=== PATIENT | male | born 1950 | race Hispanic/Latino ===

== ENCOUNTER 2017-11-07 13:31 | Emergency (ER) | payer OTHER, MEDICARE ==
[2017-11-07] MEDS ORDERED: Iohexol 240 (50 ml) PO ONE (15:04)
[2017-11-07] MEDS ORDERED: Sodium Chloride 0.9% 1,000 ML IV ONE (15:10)
--- NOTE | 2017-11-07 15:10 | ED PDOC ---
HPI: Abdomen Time Seen by Provider: 11/07/17 14:18 Chief Complaint (Nursing): GI Problem History Per: Patient History/Exam Limitations: no limitations Onset/Duration Of Symptoms: Days (2), Gradual Current Symptoms Are (Timing): Still Present Severity: Mild Associated Symptoms: Diarrhea. denies: Fever, Chills, Nausea, Vomiting, Back Pain, Chest Pain, Constipation, Urinary Symptoms Exacerbating Factors: None Alleviating Factors: None Last Bowel Movement: Today Additional History Per: Patient Additional Complaint(s): approx 2 days of watery+blood bright red stool, denies n/v, abd pain. Past Medical History Vital Signs: Last Vital Signs Temp 97.6 F 11/07/17 14:02 Pulse 114 H 11/07/17 14:02 Resp 20 11/07/17 14:02 BP 185/103 H 11/07/17 14:02 Pulse Ox - Medical History PMH: Back Problems, Depression - Surgical History Surgical History: Back Surgery - Family History Family History: States: Unknown Family Hx - Home Medications Home Medications: Ambulatory Orders Medication Instructions Recorded Escitalopram [Lexapro] 20 mg PO DAILY 07/10/16 Meloxicam 7.5 mg PO DAILY #12 tablet 07/10/16 Methylprednisolone [Medrol Dose 4 mg PO DAILY #1 packet 07/10/16 Pack (21 tabs)] Pregabalin [Lyrica] 75 mg PO TID 07/10/16 Zolpidem [Ambien] 10 mg PO HS 07/10/16 diaZEpam [Valium] 5 mg PO Q8 PRN #12 tab 07/10/16 oxyCODONE/Acetaminophen [Percocet 1 ea PO Q6 PRN #16 tab 07/10/16 5/325 mg Tab] - Allergies Allergies/Adverse Reactions: Allergies Allergy/AdvReac Type Severity Reaction Status Date / Time No Known Allergies Allergy Verified 11/07/17 14:00 Review of Systems ROS Statement: Except As Marked, All Systems Reviewed And Found Negative Constitutional: Negative for: Fever, Chills Cardiovascular: Negative for: Chest Pain, Palpitations Respiratory: Negative for: Cough, Shortness of Breath Gastrointestinal: Positive for: Diarrhea, Hematochezia. Negative for: Nausea, Vomiting, Abdominal Pain, Melena, Hematemesis Genitourinary Male: Negative for: Dysuria Musculoskeletal: Negative for: Neck Pain Skin: Negative for: Rash Neurological: Negative for: Weakness, Numbness Physical Exam - Reviewed Nursing Documentation Reviewed: Yes Vital Signs Reviewed: Yes - Physical Exam Appears: Positive for: Well, No Acute Distress Head Exam: Positive for: ATRAUMATIC, NORMAL INSPECTION, NORMOCEPHALIC Eye Exam: Positive for: Normal appearance Neck: Positive for: Normal, Painless ROM, Supple Cardiovascular/Chest: Positive for: Regular Rate, Rhythm, Chest Non Tender. Negative for: Edema, Gallop, Murmur, Bradycardia, Tachycardia Respiratory: Positive for: Normal Breath Sounds. Negative for: Decreased Breath Sounds, Accessory Muscle Use, Crackles, Rales, Rhonchi, Stridor, Wheezing Gastrointestinal/Abdominal: Positive for: Normal Exam, Bowel Sounds, Soft. Negative for: Tenderness Male Genital Exam: Positive for: other (chap with nurse). Negative for: scrotum tenderness (R), scrotum tenderness (L), testicular tenderness (R), testicular tenderness (L) Rectal: Positive for: Rectal Tone Is: (nml), Stool Is Heme: (brown heme neg). Negative for: Black Stool, Blood Streaked Stool, Hemorrhoids, Mass, Tenderness Extremity: Positive for: Normal ROM. Negative for: Tenderness, Pedal Edema Neurologic/Psych: Positive for: Alert, tire classifier II-XII, Oriented. Negative for: Motor/Sensory Deficits Disposition - Disposition
[2017-11-07] MEDS ORDERED: Iohexol 240 (50 ml) ONE (15:17)
[2017-11-07 15:21] LABS: BASO % 0.3 % (0.0-2.0); HEMATOCRIT 48.2 % (35.0-51.0); LYMPH # 0.7 K/uL (1.0-4.3); LYMPH % 4.9 % (20.0-40.0); MEAN CELL VOLUME 86.7 fl (80.0-94.0); MEAN CORPUSCULAR HEMOGLOBIN 28.3 pg (27.0-31.0); MEAN CORPUSCULAR HGB CONC 32.6 g/dL (33.0-37.0); MONO # 0.8 K/uL (0.0-0.8); NEUT # 12.2 K/uL (1.8-7.0); NEUT % 88.8 % (50.0-75.0); NRBC % 0.1 % (0.0-0.0); PLATELET COUNT 286 K/uL (130-400); RED CELL DISTRIBUTION WIDTH 14.2 % (11.5-14.5); WHITE BLOOD COUNT 13.8 K/uL (4.8-10.8)
[2017-11-07 15:30] LABS: ALKALINE PHOSPHATASE 89 U/L (38-126); ALT/SGPT 55 U/L (21-72); AMYLASE 60 U/L (30-110); AST/SGOT 27 U/L (17-59); BILIRUBIN,TOTAL 1.3 mg/dl (0.2-1.3); BLOOD UREA NITROGEN 14 mg/dl (9-20); CALCIUM 9.6 mg/dL (8.4-10.2); CARBON DIOXIDE 24 mmol/L (22-30); CHLORIDE 103 mmol/L (98-107); GFR AFRICAN-AMERICAN > 60; GLUCOSE,RANDOM 152 mg/dL (75-110); LIPASE 72 U/L (23-300); POTASSIUM 4.1 MMOL/L (3.6-5.0); SODIUM 141 mmol/l (132-148); TOTAL PROTEIN 8.6 G/DL (6.3-8.2)
[2017-11-07 15:40] LABS: RBC URINE 1 /hpf (0-3); URINE BILIRUBIN NEGATIVE (NEGATIVE); URINE BLOOD NEGATIVE (NEGATIVE); URINE COLOR YELLOW (YELLOW); URINE GLUCOSE (UA) NEG (Normal); URINE KETONE NEGATIVE (NEGATIVE); URINE LEUKOCYTE ESTERASE NEG Leu/uL (Negative); URINE PROTEIN 30 mg/dL (NEGATIVE); URINE UROBILINOGEN 0.2-1.0 mg/dL (0.2-1.0); WBC URINE 2 /hpf (0-5)
[2017-11-07 15:40] LABS: ALB/GLOB RATIO 1.4 (1.0-2.1)
[2017-11-07 16:52] LABS: NEUTROPHIL 85 % (42-75); TOTAL CELLS COUNTED 100
[2017-11-07] MEDS ORDERED: Iohexol 300 100 ML IJ ONE (17:23)
[2017-11-07] MEDS ORDERED: Iohexol 300 50 ML ONE (18:26)
--- NOTE | 2017-11-07 19:42 | ED PDOC ---
"- Laboratory Results Result Diagrams: 11/07/17 15:14 11/07/17 15:14 Medical Decision Making Medical Decision Makin:00 -Patient signed out to me by Vlad Brewster, pending CT report 20:30 COMPARISON: CT - ABDOMEN^ABD_ROUTINE_WO (ADULT) 2010-09-22 02:50 FINDINGS: Lower thorax: Heart size is at the upper limits of normal. There is opacity at the lung bases right greater than left. There are no definite effusions. There is pleural thickening greatest on the right. ABDOMEN: Liver: There is fatty infiltration of the liver. Gallbladder and bile ducts: unremarkable Pancreas: Pancreas is mildly atrophic. Spleen: unremarkable Adrenals: unremarkable Kidneys and ureters: There is a right renal cyst. Kidneys and ureters are otherwise unremarkable. Stomach and bowel: Stomach is incompletely distended which accentuates the gastric wall. Rotation is normal. There is mild duodenal and proximal jejunal wall and fold thickening. There is no small bowel obstruction. There is contrast in distal small bowel. There is mild terminal ileal wall thickening. Appendix is unremarkable. There is cecal and proximal ascending colon wall thickening. Colon is PETRA BARNEY | Final Radiology Report CONFIDENTIALITY STATEMENT This report is intended only for use by the referring physician, and only in accordance with law. If you received this in error, call [phone]. Page 2 of 2 incompletely distended which limits evaluation. There is transverse and descending colon wall thickening. There is diffuse sigmoid and rectal wall thickening. There is scattered diverticulosis. Appendix: See stomach and bowel PELVIS: Bladder: unremarkable Reproductive: Prostate is enlarged. Seminal vesicles are unremarkable. ABDOMEN and PELVIS: Intraperitoneal space: There is no free air. There is no free fluid. Bones/joints: Bony structures are osteopenic. There are degenerative changes. There is old deformity at L1. There are degenerative changes at T12-L1. 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 There is L5- S1 fusion. There is a cage at the L5-S1 disc space. Soft tissues: There is a small fat containing umbilical hernia. Vasculature: There are vascular calcifications. Lymph nodes: There is no pathologic adenopathy. IMPRESSION: Enterocolitis; pleural thickening and scarring at the lung bases difficult to further evaluate Additional nonemergent findings as described above Pt. reassessed at bedside, states pain is coming and going but has chronic pain in his back and neck for which he has not taken his medications for. Explained results of CT to patient, offered patient admission but patient declining, states he wants to go home tonight. [facility] contacted via Mal Zelaya who states patient can followup with Dr. Stevenson at 8AM tomorrow for re- evaluation. Cipro/Flagyl ordered, morphine for pain, and additional 1LNS. Instructed patient to return to ER tonight if bleeding or pain worsens, fevers develop, or any other concerning symptoms, otherwise he can followup in doctor' s office tomorrow morning. Scribe Attestation: Documented by Kaveh Ybarra, acting as a scribe for Ha Serrano MD Provider Scribe Attestation: All medical record entries made by the Scribe were at my direction and personally dictated by me. I have reviewed the chart and agree that the record accurately reflects my personal performance of the history, physical exam, medical decision making, and the department course for this patient. I have also personally directed, reviewed, and agree with the discharge instructions and disposition. Disposition - Clinical Impression Clinical Impression: Enterocolitis - POA Present On Arrival: None - Disposition Referrals: Jose Stevenson MD [Staff Provider] - 11/08/17 8:00 am (Please followup tomorrow morning at 8AM at your regular doctor's office. ) Disposition: Routine/Home Disposition Time: 22:44 Condition: IMPROVED Additional Instructions: You MUST followup with Dr. Stevenson tomorrow morning at 8AM at your regular doctor' s office location. Prescriptions: Ciprofloxacin [Cipro] 500 mg PO BID 7 Days tab metroNIDAZOLE [Flagyl] 500 mg PO BID 7 Days tab Instructions: Colitis (ED) Forms: [employer] (Lao)"
--- NOTE | 2017-11-07 20:20 | CT ---
EXAM: CT Abdomen and Pelvis With Intravenous Contrast EXAM DATE/TIME: 11/07/2017 3:05 PM CLINICAL HISTORY: 66 years old, male; Pain and signs and symptoms; Other: Blood in stool; Abdominal pain; Generalized; Patient HX: 2 days watery , bloody stools; Additional info: Abd pain R/O diverticulitis. Sent phy. Doc. TECHNIQUE: Axial computed tomography images of the abdomen and pelvis with intravenous contrast. All CT scans at this facility use one or more dose reduction techniques, viz.: automated exposure control; ma/kV adjustment per patient size (including targeted exams where dose is matched to indication; i.e. head); or iterative reconstruction technique. Coronal and sagittal reformatted images were created and reviewed. CONTRAST: 95 mL of omnipaque 300 administered intravenously. COMPARISON: CT - ABDOMEN^ABD ROUTINE WO (ADULT) 2010-09-22 02:50 FINDINGS: Lower thorax: Heart size is at the upper limits of normal. There is opacity at the lung bases right greater than left. There are no definite effusions. There is pleural thickening greatest on the right. ABDOMEN: Liver: There is fatty infiltration of the liver. Gallbladder and bile ducts: unremarkable Pancreas: Pancreas is mildly atrophic. Spleen: unremarkable Adrenals: unremarkable Kidneys and ureters: There is a right renal cyst. Kidneys and ureters are otherwise unremarkable. Stomach and bowel: Stomach is incompletely distended which accentuates the gastric wall. Rotation is normal. There is mild duodenal and proximal jejunal wall and fold thickening. There is no small bowel obstruction. There is contrast in distal small bowel. There is mild terminal ileal wall thickening. Appendix is unremarkable. There is cecal and proximal ascending colon wall thickening. Colon is incompletely distended which limits evaluation. There is transverse and descending colon wall thickening. There is diffuse sigmoid and rectal wall thickening. There is scattered diverticulosis. Appendix: See stomach and bowel PELVIS: Bladder: unremarkable Reproductive: Prostate is enlarged. Seminal vesicles are unremarkable. ABDOMEN and PELVIS: Intraperitoneal space: There is no free air. There is no free fluid. Bones/joints: Bony structures are osteopenic. There are degenerative changes. There is old deformity at L1. There are degenerative changes at T12-L1. 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 There is L5-S1 fusion. There is a cage at the L5-S1 disc space. Soft tissues: There is a small fat containing umbilical hernia. Vasculature: There are vascular calcifications. Lymph nodes: There is no pathologic adenopathy. IMPRESSION: Enterocolitis; pleural thickening and scarring at the lung bases difficult to further evaluate Additional nonemergent findings as described above
[2017-11-07] MEDS ORDERED: metroNIDAZOLE 500mg/100ml NS 100 ML IVPB STA (20:29)
[2017-11-07] MEDS ORDERED: Ciprofloxacin 400mg/200ml D5W 400 MG/200 ML BAG IVPB STA (20:29)
[2017-11-07] MEDS ORDERED: Sodium Chloride 0.9% 1,000 ML IV STA (20:30)
[2017-11-07] MEDS ORDERED: Ciprofloxacin 400mg/200ml D5W 400 MG/200 ML BAG IVPB ONE (20:42)
[2017-11-07] MEDS ORDERED: metroNIDAZOLE 500mg/100ml NS 100 ML IVPB ONE (20:42)
[2017-11-07 23:23] VITALS: BP 170/100; PULSE 68; RESP 18; TEMP 98; O2SAT 99
--- NOTE | 2017-11-08 09:31 | CARD ---
APPROVED REPORT EKG Measurement Heart [id number] <Conclusion> Sinus tachycardia Otherwise normal ECG
== END 2017-11-07 23:27 | disposition home or self-care (01) ==
LOC: H.ER 13:31
DX: K52.9 Noninfective gastroenteritis and colitis, unspecified (principal); F32.9 Major depressive disorder, single episode, unspecified; G89.29 Other chronic pain; K42.9 Umbilical hernia without obstruction or gangrene
CPT/HCPCS: 74177; 80053; 81003; 82150; 83690; 84484; 85025; 87045; 93005; 96365; 96375; 99284; J0744; J2270; J7040; Q9966; Q9967